=== PATIENT | female | born 1980 | race Caucasian/White ===

== ENCOUNTER 2017-10-16 14:19 | Emergency (ER) | payer BC, OTHER ==
[~2017-10-16] VITALS: Ht 160 cm; Wt 51.0 kg
[~2017-10-16 14:19] MED LIST: IBUP600T44 PO; ONDA4TAB46 PO; PRT/20 PO
[2017-10-16 14:22] VITALS: TEMP 37.2; Ht 160 cm; Wt 51.0 kg
[2017-10-16] MEDS ORDERED: KETOROLAC TROMETHAMINE 15 MG/ML VIAL IV STA (14:50)
[2017-10-16] MEDS ORDERED: PROCHLORPERAZINE 5 MG/ML 2 ML VIAL IV STA (14:50)
[2017-10-16] MEDS ORDERED: DiphenhydrAMINE HCL 50 MG/ML VIAL IV STA (14:50)
[2017-10-16] MEDS ORDERED: DEXAMETHASONE SOD INJ 4 MG/ML VIAL IV STA (14:50)
[2017-10-16] MEDS ORDERED: KETOROLAC TROMETHAMINE 30 MG/ML VIAL ONE (15:08)
--- NOTE | 2017-10-16 15:11 | EMERGENCY ROOM VISIT NOTE ---
History First contact with patient: 14:33 Chief Complaint: HEADACHE Stated Complaint: HEADACHE THAT WONT GO AWAY History of Present Illness The patient is a 37 year old female who presents to the Emergency Room with complaints of a headache. The patient reports that she has had a headache for the past few days. The headache started 2 days ago. She states that she first noticed it when she bent down to pick something up. She states the pain has been progressively worsening. It was initially located in the frontal region of the head but is now also located in the back of the head. She states it is worse with movements or position changes. She rates the discomfort a 5/10 at rest. She states that she has had chills which began before the headache. Her highest temperature was 100.5F yesterday. She states that she has felt generally ill and has had body aches for the past 5 days. She denies cough, sore throat or earaches. She denies neck pain/stiffness, vision changes, photosensitivity, numbness, weakness, nausea or vomiting. She does state she has had headaches in the past from sinus infections and feels this may be similar. She has also had a few headaches which she states were associated with visual aura and she believes to have been migraines. She feels this is the worst headache of her life because it has not gone away yet. She has been taking ibuprofen every 6 hours without relief. She was seen by her primary care provider and sent here for evaluation. Review of Systems A complete 10 point review of systems was reviewed with the patient with pertinent positives and negatives as per history of present illness. All else were negative. Past Medical/Surgical History Medical Problems: (1) H. pylori infection (2) Inflammatory arthritis (3) Pancreatitis Surgical Problems: (1) Hx of cholecystectomy Family History FH: heart disease Social History Smoking Status: Never Smoker Marital Status: Housing Status: lives with family Current/Historical Medications Scheduled Lactobacillus (Probiotic), 1 CAP PO QAM Lansoprazole (Prevacid), 30 MG PO DAILYBB Sulfasalazine (Azulfidine), 1,000 MG PO BID Physical Exam Vital Signs Date Time Temp Pulse Resp B/P (MAP) Pulse Ox O2 Delivery O2 Flow Rate FiO2 10/16/17 16:12 76 20 97/47 98 Room Air 10/16/17 14:22 37.2 80 18 104/67 99 Room Air Physical Exam VITALS: Vitals are noted on the nurse's note and reviewed by myself. Vital signs stable. GENERAL: This is a 37-year-old female, in no acute distress, nondiaphoretic, well-developed well-nourished. SKIN: The skin was without rashes. HEAD: Normocephalic atraumatic. EARS: External auditory canals clear, tympanic membranes pearly davison without erythema or effusion bilaterally. EYES: Pupils equal round and reactive to light and accommodation. Extraocular movements intact. NOSE: Patent, turbinates without inflammation or discharge. MOUTH: Mucous membranes moist. Tonsils are not enlarged. Pharynx without erythema or exudate. NECK: Supple without nuchal rigidity. No lymphadenopathy. Full range of motion of the neck. No meningismus. HEART: Regular rate and rhythm without murmurs gallops or rubs. LUNGS: Clear to auscultation bilaterally without wheezes, rales or rhonchi. MUSCULOSKELETAL: Strength 5/5 throughout. NEURO: Patient was alert and oriented to person place and time. No focal neurological deficits. Medical Decision & Procedures ER Provider Diagnostic Interpretation: HEAD WITHOUT CONTRAST (CT) FINDINGS: No acute intracranial hemorrhage, midline shift, intracranial mass, hydrocephalus, territorial ischemia or abnormal extra-axial collection. The calvarium is intact. The paranasal sinuses, mastoid air cells, and middle ear cavities are clear. Bilateral vivienne bullosa. IMPRESSION: No acute intracranial abnormality. Laboratory Results 10/16/17 15:05 Red Blood Count 4.32, Mean Corpuscular Volume 85.2, Mean Corpuscular Hemoglobin 29.4, Mean Corpuscular Hemoglobin Concent 34.5, Mean Platelet Volume 11.0, Neutrophils (%) (Auto) 69.2, Lymphocytes (%) (Auto) 19.0, Monocytes (%) (Auto) 8.5, Eosinophils (%) (Auto) 2.8, Basophils (%) (Auto) 0.5, Neutrophils # (Auto) 4.48, Lymphocytes # (Auto) 1.23, Monocytes # (Auto) 0.55, Eosinophils # (Auto) 0.18, Basophils # (Auto) 0.03 10/16/17 15:05 Test 10/16/17 15:05 White Blood Count 6.47 K/uL (4.8-10.8) Red Blood Count 4.32 M/uL (4.2-5.4) Hemoglobin 12.7 g/dL (12.0-16.0) Hematocrit 36.8 % (37-47) Mean Corpuscular Volume 85.2 fL (80-100) Mean Corpuscular Hemoglobin 29.4 pg (25-34) Mean Corpuscular Hemoglobin Concent 34.5 g/dl (32-36) Platelet Count 173 K/uL (130-400) Mean Platelet Volume 11.0 fL (7.4-10.4) Neutrophils (%) (Auto) 69.2 % Lymphocytes (%) (Auto) 19.0 % Monocytes (%) (Auto) 8.5 % Eosinophils (%) (Auto) 2.8 % Basophils (%) (Auto) 0.5 % Neutrophils # (Auto) 4.48 K/uL (1.4-6.5) Lymphocytes # (Auto) 1.23 K/uL (1.2-3.4) Monocytes # (Auto) 0.55 K/uL (0.11-0.59) Eosinophils # (Auto) 0.18 K/uL (0-0.5) Basophils # (Auto) 0.03 K/uL (0-0.2) RDW Standard Deviation 38.8 fL (36.4-46.3) RDW Coefficient of Variation 12.4 % (11.5-14.5) Immature Granulocyte % (Auto) 0.0 % Immature Granulocyte # (Auto) 0.00 K/uL (0.00-0.02) Anion Gap 6.0 mmol/L (3-11) Est Creatinine Clear Calc Drug Dose 108.6 ml/min Estimated GFR () 136.1 Estimated GFR (Non- 117.5 BUN/Creatinine Ratio 29.0 (10-20) Calcium Level 8.5 mg/dl (8.5-10.1) Total Bilirubin 0.5 mg/dl (0.2-1) Aspartate Amino Transf (AST/SGOT) 12 U/L (15-37) Alanine Aminotransferase (ALT/SGPT) 21 U/L (12-78) Alkaline Phosphatase 48 U/L (45-117) Total Protein 7.2 gm/dl (6.4-8.2) Albumin 3.4 gm/dl (3.4-5.0) Globulin 3.8 gm/dl (2.5-4.0) Albumin/Globulin Ratio 0.9 (0.9-2) Influenza Type A Antigen Neg for Influ A (NEG) Influenza Type B Antigen Neg for Influ B (NEG) Medications Administered Medications (Trade) Dose Ordered Sig/Lanie Route Start Time Stop Time Status Last Admin Dose Admin Ketorolac Tromethamine (Toradol Inj) 15 mg NOW STAT IV 10/16/17 14:50 10/16/17 14:56 DC 10/16/17 14:50 15 MG Prochlorperazine Edisylate (Compazine Inj) 5 mg NOW STAT IV 10/16/17 14:50 10/16/17 14:56 DC 10/16/17 15:14 5 MG Diphenhydramine HCl (Benadryl Inj) 25 mg NOW STAT IV 10/16/17 14:50 10/16/17 14:57 DC 10/16/17 15:14 25 MG Dexamethasone Sodium Phosphate (Decadron Inj) 10 mg NOW STAT IV 10/16/17 14:50 10/16/17 14:57 DC 10/16/17 15:14 10 MG ED Course The patient was evaluated as above. Labs were drawn and IV access was obtained. Patient was medicated with Toradol, Compazine, Benadryl and Decadron. CT of the head was performed and read by radiology as above. Patient was reevaluated and stated she was feeling much better. Discharge instructions were reviewed with the patient. The patient verbalized understanding of my assessment and treatment plan and was discharged home in good condition. Medical Decision The differential diagnosis includes acute intracranial bleed, meningitis, encephalitis, mass or mass effect, sinusitis, infection, tumor, headache, temporal arteritis and carbon monoxide exposure, and migraine. The patient is a 37-year-old female who presents today complaining of headache [address] of the head was performed here and was negative. Labs revealed no leukocytosis, anemia or concerning electrolyte abnormalities. Patient felt better after the above treatment. There is no evidence of meningitis/ encephalitis on exam. Patient apparently had a low-grade fever at home, however is afebrile here. She has no neck pain or stiffness. I do not feel this is consistent with meningitis. Additionally, patient's headache was gradual in onset and I am not overly suspicious of subarachnoid hemorrhage. [place] SAH rules negative. Patient was advised to keep close follow-up with her primary care provider for recheck this week and return here with any worsening or new/concerning symptoms. The patient's case was reviewed with Dr. Hinojosa, ED attending physician, who agreed with my assessment and treatment plan. Based on the patient's presentation and work up, I feel the patient is stable for outpatient treatment. The patient was educated to return to the emergency department for any worsening of their current condition or new/concerning symptoms. She will follow up with her PCP. Medication Reconcilliation Current Medication List: was personally reviewed by me Blood Pressure Screening Patient's blood pressure: Normal blood pressure Impression Primary Impression: Headache Departure Information Dispostion Home / Self-Care Condition GOOD Referrals Saloni Beasley M.D. (PCP) Patient Instructions My [facility] Additional Instructions You have been treated in the Emergency Department for a Headache. You have received pain medicine in the emergency department which impairs your ability to operate a vehicle. It is illegal for you to drive after receiving these medicines. For pain control, you can use the following [id number] medicines (if >12 yo): - Regular strength (325mg/tab) Tylenol (acetaminophen) 2 tabs every 4-6 hours as needed. Do not exceed 12 tablets in a 24 hour period. Avoid taking more than 4 grams (4000 mg) of Tylenol per day. This includes any other sources of acetaminophen you may take on a regular basis. - Regular strength (200 mg/tab) Advil (ibuprofen) 3-4 tabs every 4-6 hours as needed. Do not exceed a dose of 3200 mg per day. You should relax in a quiet, dark place for the rest of the day. Avoid any possible triggers including: cigarette smoke, caffeine, nicotine, chocolate, wine, beer, loud noises or music, or bright lights. You should schedule a follow-up appointment in 2-3 days with your Primary Care Provider or established Neurologist for further evaluation and treatment of your Headache. Return to the Emergency Department if your current symptoms worsen despite treatment course outlined above, or if you develop any of the following symptoms : intractable pain despite the above treatment, high fever, neck pain/stiffness , visual disturbances, loss of vision, unilateral weakness or facial drooping, slurring of speech, loss of coordination, or loss of consciousness. Problem Qualifiers Primary Impression: Headache Headache type: unspecified Headache chronicity pattern: acute headache Intractability: not intractable Qualified Codes: R51 - Headache
[2017-10-16 15:17] LABS: BASO % 0.5 %; BASO ABS # 0.03 K/uL (0-0.2); EOS % 2.8 %; EOS ABS # 0.18 K/uL (0-0.5); HEMATOCRIT 36.8 % (37-47); HEMOGLOBIN 12.7 g/dL (12.0-16.0); LYMPH ABS # 1.23 K/uL (1.2-3.4); MEAN CELL VOLUME 85.2 fL (80-100); MEAN CORPUSCULAR HEMOGLOBIN 29.4 pg (25-34); MEAN CORPUSCULAR HGB CONC 34.5 g/dl (32-36); MONO % 8.5 %; MONO ABS # 0.55 K/uL (0.11-0.59); NEUT % 69.2 %; NEUT ABS # 4.48 K/uL (1.4-6.5); PLATELET COUNT 173 K/uL (130-400); RED CELL DISTRIBUTION WIDTH CV 12.4 % (11.5-14.5); RED CELL DISTRIBUTION WIDTH SD 38.8 fL (36.4-46.3); WHITE BLOOD COUNT 6.47 K/uL (4.8-10.8)
[2017-10-16 15:34] LABS: ALBUMIN 3.4 gm/dl (3.4-5.0); CALCIUM 8.5 mg/dl (8.5-10.1); CREATININE 0.56 mg/dl (0.60-1.20); POTASSIUM 3.6 mmol/L (3.5-5.1)
[2017-10-16] MEDS ORDERED: LANS30CA12 PO (15:35)
[2017-10-16] MEDS ORDERED: LACT1CAP6 PO (15:35)
[2017-10-16] MEDS ORDERED: SULF500T36 PO (15:35)
[2017-10-16 15:36] LABS: TOTAL PROTEIN 7.2 gm/dl (6.4-8.2)
--- NOTE | 2017-10-16 15:41 | DIAGNOSTIC IMAGING REPORT ---
HEAD WITHOUT CONTRAST (CT) CLINICAL HISTORY: 37 years-old Female with frontal headache x 2 days. Acute headache for 2 days TECHNIQUE: Multiple axial CT images of the head were obtained without contrast. A dose lowering technique was utilized adhering to the principles of ALARA. CT DOSE: 614.27 mGy.cm COMPARISON: None. FINDINGS: No acute intracranial hemorrhage, midline shift, intracranial mass, hydrocephalus, territorial ischemia or abnormal extra-axial collection. The calvarium is intact. The paranasal sinuses, mastoid air cells, and middle ear cavities are clear. Bilateral vivienne bullosa. IMPRESSION: No acute intracranial abnormality. The above report was generated using voice recognition software. It may contain grammatical, syntax or spelling errors. Electronically signed by: Chance Alvarado M.D. 10/16/2017 3:39 PM Dictated Date/Time: 10/16/2017 3:38 PM
[2017-10-16 15:43] LABS: INFLUENZA B ANTIGEN Neg for Influ B (NEG)
[2017-10-16 16:12] VITALS: BP 97/47; PULSE 76; O2SAT 98
== END 2017-10-16 16:31 | disposition home or self-care (01) ==
LOC: C.EDB 14:21
DX: R51 Headache (principal); M19.90 Unspecified osteoarthritis, unspecified site; K85.90 Acute pancreatitis without necrosis or infection, unspecified; Z82.49 Family history of ischemic heart disease and other diseases of the circulatory system; Z79.899 Other long term (current) drug therapy